=== PATIENT | male | born 1935 | race Caucasian/White ===

== ENCOUNTER 2018-11-20 12:55 | Day surgery (SDC) | payer MEDICARE, MEDICAID ==
[2018-11-20] MEDS ORDERED: fentaNYL 100 MCG/2 ML SDV IV ONE (12:56)
[2018-11-20] MEDS ORDERED: Succinylcholine 200 MG/10 ML MDV IV ONE (12:56)
[2018-11-20] MEDS ORDERED: Lidocaine 2% 100 MG/5 ML Syringe IVPUSH ONE (12:56)
[2018-11-20] MEDS ORDERED: Ondansetron 4 MG/2 ML SDV IVPUSH ONE (12:56)
[2018-11-20] MEDS ORDERED: Dexamethasone 4 MG/ML 5 ML MDV IVPUSH ONE (12:56)
[2018-11-20] MEDS ORDERED: Propofol 200 MG/20 ML SDV IV ONE (12:56)
[2018-11-20] MEDS ORDERED: Sodium Chloride 0.9% 10 ML Syringe FLUSH PRN (13:22)
[2018-11-20] MEDS ORDERED: Glucagon,Human Recombinant 1 MG Vial IVPUSH ONE (13:22)
--- NOTE | 2018-11-20 13:28 | EDM.PDOC ---
ED HPI GENERAL MEDICAL PROBLEM - General Chief Complaint: Gastrointestinal Problem Stated Complaint: SOMETHING STUCK IN ABD Time Seen by Provider: 11/20/18 13:16 Source of Information: Reports: Patient, Family History Limitations: Reports: No Limitations - History of Present Illness INITIAL COMMENTS - FREE TEXT/NARRATIVE: Albert comes into [facility] ED by POV with family and sxs of lower anterior chest discomfort. At noon, he was eating a meal that included biscuits and gravy with meat chunks when he developed lower anterior chest discomfort as though the food would not pass. He vomited up some undigested food, and the sensation persisted. He has tried water, which is also vomited up immediately. He has a PMH of esophageal disorder and food impaction on 4 past episodes that necessitated EGD, disimpaction, and subsequent balloon dilation at least once. There is no hx of perforation. - Related Data Allergies Allergy/AdvReac Type Severity Reaction Status Date / Time No Known Allergies Allergy Verified 11/20/18 13:13 Home Meds: Home Meds Allopurinol [Zyloprim] 300 mg PO DAILY 07/20/14 [History] Atenolol 50 mg PO DAILY 07/20/14 [History] Dutasteride [Avodart] 0.5 mg PO DAILY 07/20/14 [History] Promethazine [Phenergan] 25 mg PO Q6H PRN #8 tab 07/20/14 [Rx] Simvastatin [Zocor] 40 mg PO DAILY 07/20/14 [History] SitaGLIPtin [Januvia] 100 mg PO DAILY 07/20/14 [History] glipiZIDE [Glucotrol] 10 mg PO BID 07/20/14 [History] hydroCHLOROthiazide [Hydrochlorothiazide] 50 mg PO DAILY 07/20/14 [History] metFORMIN [Glucophage] 500 mg PO DAILY 07/20/14 [History] Ondansetron [Zofran ODT] 4 mg PO Q6H PRN #15 tab.dis 07/21/14 [Rx] Prochlorperazine Maleate [Compazine] 10 mg PO Q6H PRN #15 tablet 07/21/14 [Rx] Metoclopramide HCl [Reglan] 5 mg PO TIDAC #20 tablet 11/20/18 [Rx] Past Medical History Cardiovascular History: Reports: High Cholesterol, Hypertension Genitourinary History: Reports: Prostate Disorder Musculoskeletal History: Reports: Arthritis, Gout Endocrine/Metabolic History: Reports: Diabetes, Type II ED ROS GENERAL - Review of Systems Review Of Systems: See Below Constitutional: Reports: No Symptoms HEENT: Reports: No Symptoms Respiratory: Reports: No Symptoms Cardiovascular: Reports: No Symptoms Endocrine: Reports: High Glucose GI/Abdominal: Reports: Abdominal Pain, Difficulty Swallowing, Vomiting : Reports: Frequency Musculoskeletal: Reports: Other (arthritis) Skin: Reports: No Symptoms Neurological: Reports: Difficulty Walking Psychiatric: Reports: No Symptoms Hematologic/Lymphatic: Reports: No Symptoms Immunologic: Reports: No Symptoms ED EXAM, GI/ABD - Physical Exam Exam: See Below Exam Limited By: Other (hard of hearing) General Appearance: Alert, WD/WN, Anxious, Mild Distress, Obese, Active Emesis Eyes: Bilateral: Normal Appearance, EOMI Ears: Hearing Loss Nose: Normal Inspection Throat/Mouth: Normal Inspection, Normal Lips Head: Normocephalic Neck: Normal Inspection, Limited Range of Motion Respiratory/Chest: Lungs Clear, Normal Breath Sounds, Chest Non-Tender Cardiovascular: Regular Rate, Rhythm, No JVD, Other (dependent edema) GI/Abdominal Exam: Normal Bowel Sounds, Soft, Non-Tender, No Organomegaly, No Distention, No Mass (Male) Exam: Deferred Rectal (Males) Exam: Deferred Back Exam: Normal Inspection Extremities: Limited Range of Motion Neurological: Alert, Oriented, Normal Cognition Psychiatric: Normal Affect, Normal Mood Skin Exam: Warm, Dry, Intact Lymphatic: No Adenopathy Course - Vital Signs Text/Narrative:: Case was discussed with Dr Webb regarding suspected esophageal food impaction , and he will consult. I started an IV in the LUE and administered Glucagon 1 mg IV push. His bedside nonfasting BS: 220 mg%. The Operative Report appears elsewhere. Last Recorded V/S: Last Vital Signs Temp 36.6 C 11/20/18 13:00 Pulse 78 11/20/18 13:00 Resp 16 11/20/18 13:00 BP 159/72 H 11/20/18 13:00 Pulse Ox 98 11/20/18 13:00 - Orders/Labs/Meds Orders: Active Orders 24 hr Category Date Time Status Blood Glucose Check, Bedside [RC] ONETIME Care 11/20/18 13:38 Active Ready for Discharge [RC] PER UNIT ROUTINE Care 11/20/18 15:15 Active Peripheral IV Insertion Adult [OM.PC] Routine Oth 11/20/18 13:22 Ordered Labs: Laboratory Tests 11/20/18 Range/Units 13:40 POC Glucose 220 H (80-116) mg/dL Meds: Medications Discontinued Medications Generic Name Dose Route Start Last Admin Trade Name Freq PRN Reason Stop Dose Admin Glucagon 1 mg 11/20/18 13:22 11/20/18 13:35 Glucagen IVPUSH 11/20/18 13:23 1 mg ONETIME ONE Administration Sodium Chloride 1,000 mls @ 200 mls/hr 11/20/18 14:00 11/20/18 14:01 Normal Saline IV 200 mls/hr ASDIRECTED OFELIA Administration Sodium Chloride 10 ml 11/20/18 13:22 11/20/18 13:32 Saline Flush FLUSH 10 ml ASDIRECTED PRN Administration Keep Vein Open Departure - Departure Time of Disposition: 15:30 Disposition: Home, Self-Care 01 Condition: Fair Clinical Impression: Food impaction of esophagus Qualifiers: Encounter type: initial encounter Qualified Code(s): T18.128A - Food in esophagus causing other injury, initial encounter - Discharge Information *PRESCRIPTION DRUG MONITORING PROGRAM REVIEWED*: Not Applicable *COPY OF PRESCRIPTION DRUG MONITORING REPORT IN PATIENT AKASH: Not Applicable Prescriptions: Metoclopramide HCl [Reglan] 5 mg PO TIDAC #20 tablet Referrals: Red Garcia DO [Primary Care Provider] - Pascual Webb MD [Physician] - (7-10 days ) Forms: ED Department Discharge - Problem List & Annotations (1) Food impaction of esophagus SNOMED Code(s): 309300578 Code(s): T18.128A - FOOD IN ESOPHAGUS CAUSING OTHER INJURY, INITIAL ENCOUNTER Status: Acute Annotation/Comment:: See Dr Webb's note and recommendations. Qualifiers: Encounter type: initial encounter Qualified Code(s): T18.128A - Food in esophagus causing other injury, initial encounter - Problem List Review Problem List Initiated/Reviewed/Updated: Yes - My Orders Last 24 Hours: My Active Orders 11/20/18 13:22 Peripheral IV Insertion Adult [OM.PC] Routine 11/20/18 13:38 Blood Glucose Check, Bedside [RC] ONETIME - Assessment/Plan Last 24 Hours: My Active Orders 11/20/18 13:22 Peripheral IV Insertion Adult [OM.PC] Routine 11/20/18 13:38 Blood Glucose Check, Bedside [RC] ONETIME Plan: Follow up with Dr. Webb.
[2018-11-20] MEDS ORDERED: Sodium Chloride 0.9% 1,000 ML IV SCH (14:00)
--- NOTE | 2018-11-20 14:04 | PCM.HP ---
H&P History of Present Illness - General Date of Service: 11/20/18 - History of Present Illness Initial Comments - Free Text/Narative: 83 yo wm who has a hx of recurrent food impaction. Has had issue for the past 5 yrs. Last scope involved a dilation as well. Was having some stew today apparently had some food stuck. Has not been able to handle his secretions. - Related Data Allergies/Adverse Reactions: Allergies Allergy/AdvReac Type Severity Reaction Status Date / Time No Known Allergies Allergy Verified 11/20/18 13:13 Home Medications: Home Meds Allopurinol [Zyloprim] 300 mg PO DAILY 07/20/14 [History] Atenolol 50 mg PO DAILY 07/20/14 [History] Dutasteride [Avodart] 0.5 mg PO DAILY 07/20/14 [History] Promethazine [Phenergan] 25 mg PO Q6H PRN #8 tab 07/20/14 [Rx] Simvastatin [Zocor] 40 mg PO DAILY 07/20/14 [History] SitaGLIPtin [Januvia] 100 mg PO DAILY 07/20/14 [History] glipiZIDE [Glucotrol] 10 mg PO BID 07/20/14 [History] hydroCHLOROthiazide [Hydrochlorothiazide] 50 mg PO DAILY 07/20/14 [History] metFORMIN [Glucophage] 500 mg PO DAILY 07/20/14 [History] Ondansetron [Zofran ODT] 4 mg PO Q6H PRN #15 tab.dis 07/21/14 [Rx] Prochlorperazine Maleate [Compazine] 10 mg PO Q6H PRN #15 tablet 07/21/14 [Rx] Past Medical History Cardiovascular History: Reports: High Cholesterol, Hypertension Genitourinary History: Reports: Prostate Disorder Musculoskeletal History: Reports: Arthritis, Gout Endocrine/Metabolic History: Reports: Diabetes, Type II Social & Family History - Family History Family Medical History: Noncontributory - Tobacco Use Smoking Status *Q: Never Smoker - Caffeine Use Caffeine Use: Reports: Tea - Recreational Drug Use Recreational Drug Use: No H&P Review of Systems - Review of Systems: Review Of Systems: See Below General: Reports: No Symptoms Pulmonary: Reports: Shortness of Breath Cardiovascular: Reports: No Symptoms Gastrointestinal: Reports: Difficulty Swallowing Exam - Exam Exam: See Below - Vital Signs Vital Signs: Last Vital Signs Temp 97.8 F 11/20/18 13:00 Pulse 78 11/20/18 13:00 Resp 16 11/20/18 13:00 BP 159/72 H 11/20/18 13:00 Pulse Ox 98 11/20/18 13:00 Weight: 97.976 kg - Exam General: Alert, Oriented, Cooperative Neck: Supple, Trachea Midline Lungs: Clear to Auscultation, Normal Respiratory Effort Cardiovascular: Regular Rate, Regular Rhythm GI/Abdominal Exam: Normal Bowel Sounds, Soft, Non-Tender - Patient Data Lab Results Last 24 hrs: Laboratory Results - last 24 hr 11/20/18 Range/Units 13:40 POC Glucose 220 H (80-116) mg/dL - Problem List (1) Food impaction of esophagus SNOMED Code(s): 572603520 ICD Code: T18.128A - FOOD IN ESOPHAGUS CAUSING OTHER INJURY, INITIAL ENCOUNTER Status: Acute Current Visit: Yes Qualifiers: Encounter type: initial encounter Qualified Code(s): T18.128A - Food in esophagus causing other injury, initial encounter Problem List Initiated/Reviewed/Updated: Yes Orders Last 24hrs: Active Orders 24 hr Category Date Time Status Blood Glucose Check, Bedside [RC] ONETIME Care 11/20/18 13:38 Active Sodium Chloride 0.9% [Normal Saline] 1,000 ml Med 11/20/18 14:00 Active IV ASDIRECTED Sodium Chloride 0.9% [Saline Flush] Med 11/20/18 13:22 Active 10 ml FLUSH ASDIRECTED PRN Peripheral IV Insertion Adult [OM.PC] Routine Oth 11/20/18 13:22 Ordered Medication Orders Sodium Chloride (Normal Saline) 1,000 mls @ 200 mls/hr IV ASDIRECTED OFELIA Sodium Chloride (Saline Flush) 10 ml FLUSH ASDIRECTED PRN PRN Reason: Keep Vein Open Last Admin: 11/20/18 13:32 Dose: 10 ml
--- NOTE | 2018-11-20 15:11 | PCM.OPNOTE ---
- General Post-Op/Procedure Note Date of Surgery/Procedure: 11/20/18 Operative Procedure(s): egd with removal of food Findings: partial food impaction dilated distal esophagus suggesitive of achalasia Pre Op Diagnosis: food impaction Post-Op Diagnosis: partial food impaction. achalasia Anesthesia Technique: General ET Tube Primary Surgeon: Pascual Webb Anesthesia Provider: Carlos Augustin Pathology: none Complications: None Condition: Fair Free Text/Narrative:: see dicatation
--- NOTE | 2018-11-20 15:28 | OR ---
DATE OF OPERATION: 11/20/2018 SURGEON: Pascual Webb MD PROCEDURE PERFORMED: Upper endoscopy with partial food bolus impaction. PREOPERATIVE DIAGNOSIS: Food impaction. POSTOPERATIVE DIAGNOSIS: Partial food impaction and questionable achalasia. INDICATIONS FOR PROCEDURE: This is an 83-year-old white male who has had a 5- year standing history of food impactions happen annually. He has been dilated in the past. Apparently, he was having some type of chicken and mixed vegetable with pastry dish today and got some food caught in his esophagus. It was very uncomfortable. He was offered and accepted an upper endoscopy. DESCRIPTION OF OPERATION: After an excellent general anesthetic was administered via endotracheal tube, the flexible scope was passed down the patient's esophagus. Approximately at 40 cm, we encountered some food. We were able to move the scope beyond this point into the stomach. The scope was then slowly withdrawn, and proximal to this, it appeared that he does have a narrowing of the esophagus with some retained food that was floating around in the dilated esophagus suggestive of achalasia. A Stevens Net was passed several times and the bulk of the food particles were removed. As we were able to pass the scope without difficulty, no dilatation was attempted at this point. He will be placed on a full liquid diet and further workup will be commenced. /[id number] /MODL
[2018-11-20 16:03] VITALS: BP 152/76; PULSE 69
== END 2018-11-20 15:56 ==
LOC: FB.ED 12:55 → FB.SDS 14:26
PROVIDERS: ATTEND Surgery
DX: T18.128A Food in esophagus causing other injury, initial encounter (principal); E78.00 Pure hypercholesterolemia, unspecified; I10 Essential (primary) hypertension; E11.9 Type 2 diabetes mellitus without complications; Z79.899 Other long term (current) drug therapy; Z79.84 Long term (current) use of oral hypoglycemic drugs
CPT/HCPCS: 00731; 82962; 96374; 99283; 99284; J0330; J1100; J1610; J2001; J2405; J2704; J3010; J7030; 43247

== ENCOUNTER 2018-12-18 06:39 | Day surgery (SDC) | payer MEDICARE, MEDICAID ==
[2018-12-18] MEDS ORDERED: Propofol 200 MG/20 ML SDV IV ONE (06:40)
[2018-12-18] MEDS ORDERED: Lidocaine 2% 100 MG/5 ML Syringe IVPUSH ONE (06:40)
[2018-12-18] MEDS ORDERED: Lactated Ringers 1,000 ML IV SCH (06:45)
[2018-12-18] MEDS ORDERED: Sodium Chloride 0.9% 10 ML Syringe FLUSH PRN (06:45)
--- NOTE | 2018-12-18 08:14 | PCM.OPNOTE ---
- General Post-Op/Procedure Note Date of Surgery/Procedure: 12/18/18 Operative Procedure(s): egd with bx Findings: hiatal hernia gastroduodenitis Pre Op Diagnosis: hx of food impaction. hx of stricture Post-Op Diagnosis: hiatal hernia. gastroduodenitis Anesthesia Technique: [facility] Primary Surgeon: Pascual Webb Anesthesia Provider: Yesi Avina Pathology: stomach and duodenum Complications: None Condition: Good Free Text/Narrative:: see dictation
[2018-12-18 09:30] VITALS: BP 138/76; PULSE 72
--- NOTE | 2018-12-18 11:16 | OR ---
DATE OF OPERATION: 12/18/2018 SURGEON: Pascual Webb MD PROCEDURE PERFORMED: Esophagogastroduodenoscopy with cold forceps biopsy. PREOPERATIVE DIAGNOSIS: Personal history of esophageal stricture and food impaction. POSTOPERATIVE DIAGNOSES: Hiatal hernia, gastric duodenitis with no obvious esophageal stricture. INDICATIONS FOR PROCEDURE: This is an 83-year-old white male who apparently has issues on occasion with impacted food, told he had a stricture in the past and apparently he has had a dilatation in the past as well. Recently, he has had removal of food impaction. Followup barium swallow showed a hiatal hernia with no evidence of stricture and he is scheduled for followup EGD at this time. DESCRIPTION OF OPERATION: After an excellent IV sedation was administered, the bite block was inserted. The flexible endoscope was passed down the patient's esophagus into the stomach. The stomach was insufflated, scope passed through the pylorus to the second portion of the duodenum and slowly withdrawn. The following findings were noted. Duodenum: In the first portion of the duodenum, marked duodenitis, photo and biopsies were taken. Stomach: The patient has a hiatal hernia approximately 10 cm, appears to be in the chest. There was some gastritis in the area of the intrathoracic portion of the stomach. The stomach appears to be sliding in and out of the thoracic cavity. The GE junction measured approximately 30 cm. There was absolutely no evidence of stricture. Esophagus: Unremarkable. The stomach was deflated, scope was removed. The patient tolerated the procedure well. /[id number] /MODL
== END 2018-12-18 09:13 | disposition home or self-care (01) ==
LOC: FB.SDS 06:39
PROVIDERS: ATTEND Surgery
DX: K44.9 Diaphragmatic hernia without obstruction or gangrene (principal); K29.30 Chronic superficial gastritis without bleeding; K29.80 Duodenitis without bleeding; K21.9 Gastro-esophageal reflux disease without esophagitis; I10 Essential (primary) hypertension; E11.9 Type 2 diabetes mellitus without complications; E78.2 Mixed hyperlipidemia; M1A.9XX0 Chronic gout, unspecified, without tophus (tophi); Z87.891 Personal history of nicotine dependence; Z87.19 Personal history of other diseases of the digestive system; Z79.84 Long term (current) use of oral hypoglycemic drugs; Z79.899 Other long term (current) drug therapy
CPT/HCPCS: 00731; 43239; 82962; J2001; J2704; J7120; 88305; 88342